=== PATIENT | male | born 1935 | race Caucasian/White ===

== ENCOUNTER 2020-12-26 10:55 | Inpatient (IN) | payer OTHER, BC ==
[2020-12-26 11:22] VITALS: BMI 23.3
[2020-12-26 12:48] LABS: BASO % 0.3 % (0-2.0); EOS % 0.5 % (0-4.5); HEMATOCRIT 31.8 % (35.4-49); HEMOGLOBIN 10.5 GM/dL (11.7-16.9); LYMPH % 5.3 % (8-40); MCH 30.2 pg (25.7-33.7); MEAN CELL VOLUME 91.4 fl (80-96); MEAN PLT VOLUME 8.4 fl (7.5-11.1); MONO % 9.1 % (3.8-10.2); NEUT % 84.8 % (42.8-82.8); PLATELET COUNT 357 K/MM3 (134-434); RBC 3.49 M/mm3 (4.00-5.60); WHITE BLOOD COUNT 11.3 K/mm3 (4.0-10.0)
[2020-12-26 12:55] LABS: INR 1.16 (0.83-1.09)
[2020-12-26 13:21] LABS: CHLORIDE 104 mmol/L (98-107); POTASSIUM 4.4 mmol/L (3.5-5.1); SODIUM 137 mmol/L (136-145)
[2020-12-26 13:25] LABS: ALBUMIN 2.7 g/dl (3.4-5.0); ANION GAP 7 MMOL/L (8-16); BLOOD UREA NITROGEN 10.6 mg/dL (7-18); CALCIUM 8.4 mg/dL (8.5-10.1); CO2 26 mmol/L (21-32); GLUCOSE,RANDOM 101 mg/dL (74-106)
[2020-12-26 13:28] LABS: CREATININE 0.8 mg/dL (0.55-1.3); SGOT/AST 17 U/L (15-37); SGPT/ALT 11 U/L (13-61)
[2020-12-26 13:29] LABS: BILIRUBIN,TOTAL 0.6 mg/dL (0.2-1)
[2020-12-26 13:30] LABS: ALK PHOS 409 U/L (45-117)
[2020-12-26] MEDS: SODIUM CHLORIDE 1,000 ML IV SCH (18:38)
[2020-12-26 21:15] LABS: PH,URINE 5.5 (5.0-8.0); URINE APPEARANCE CLEAR; URINE BILIRUBIN NEGATIVE (NEGATIVE); URINE COLOR YELLOW; URINE GLUCOSE (UA) NEGATIVE (NEGATIVE); URINE KETONE NEGATIVE (NEGATIVE); URINE LEUK ESTERASE NEGATIVE (NEGATIVE); URINE NITRITE NEGATIVE (NEGATIVE); URINE PROTEIN NEGATIVE (NEGATIVE); URINE UROBILINOGEN 0.2 mg/dL (0.2-1.0)
[2020-12-27] MEDS ORDERED: MORPHINE SULFATE 2 MG/ML VIAL ONE (02:24)
[2020-12-27] MEDS ORDERED: ACETAMINOPHEN 325 MG TABLET (FP) PO PRN (02:25)
[2020-12-27] MEDS: MORPHINE SULFATE 2 MG/ML VIAL IVPUSH PRN ×2 (02:29→17:23)
[2020-12-27 08:13] LABS: BASO % 0.3 % (0-2.0); EOS % 0.3 % (0-4.5); HEMATOCRIT 28.9 % (35.4-49); HEMOGLOBIN 9.7 GM/dL (11.7-16.9); LYMPH % 6.5 % (8-40); MCH 30.4 pg (25.7-33.7); MCHC 33.4 g/dl (32.0-35.9); MEAN PLT VOLUME 8.4 fl (7.5-11.1); MONO % 8.2 % (3.8-10.2); NEUT % 84.7 % (42.8-82.8); PLATELET COUNT 349 K/MM3 (134-434); RBC 3.18 M/mm3 (4.00-5.60); RDW 14.9 % (11.9-15.9); WHITE BLOOD COUNT 12.1 K/mm3 (4.0-10.0)
[2020-12-27 08:26] LABS: CHLORIDE 106 mmol/L (98-107); POTASSIUM 4.5 mmol/L (3.5-5.1); SODIUM 140 mmol/L (136-145)
[2020-12-27 08:34] LABS: CREATININE 0.7 mg/dL (0.55-1.3); SGOT/AST 18 U/L (15-37)
[2020-12-27 08:35] LABS: ANION GAP 9 MMOL/L (8-16); BILIRUBIN,TOTAL 0.6 mg/dL (0.2-1); CALCIUM 8.4 mg/dL (8.5-10.1); CO2 24 mmol/L (21-32); GLUCOSE,RANDOM 107 mg/dL (74-106)
[2020-12-27 08:36] LABS: ALBUMIN 2.6 g/dl (3.4-5.0); BLOOD UREA NITROGEN 13.1 mg/dL (7-18); TOT PROT 6.5 g/dl (6.4-8.2)
[2020-12-27 08:38] LABS: PHOSPHOROUS 4.2 mg/dL (2.5-4.9)
[2020-12-27 08:43] LABS: SGPT/ALT 13 U/L (13-61)
[2020-12-27 08:44] LABS: ALK PHOS 373 U/L (45-117)
[2020-12-27] MEDS ORDERED: ENOXAPARIN NA (PORCINE) 40 MG/0.4 ML DISP.SYRIN SQ SCH (10:00)
[2020-12-27] MEDS ORDERED: LOSARTAN POTASSIUM 50 MG TABLET PO SCH (11:30)
[2020-12-27] MEDS ORDERED: LOSARTAN POTASSIUM 50 MG TABLET ONE (11:40)
[2020-12-27] MEDS: SODIUM CHLORIDE 1,000 ML IV SCH (16:52)
[2020-12-27] MEDS ORDERED: ceFAZolin SODIUM 1 GM VIAL ONE (19:22)
[2020-12-27] MEDS ORDERED: EPHEDRINE SULFATE/0.9% NACL/PF 50 MG/10 ML SYRINGE NR ONE (19:22)
[2020-12-27] MEDS ORDERED: LIDOCAINE HCL/PF 2% SDV 5ML VIAL ONE (19:22)
[2020-12-27] MEDS ORDERED: SODIUM CHLORIDE 0.9% P/F 10 ML VIAL IJ ONE (19:22)
[2020-12-27] MEDS ORDERED: MIDAZOLAM HCL 2 MG/2 ML SINGLE DOSE VIAL ONE (19:23)
[2020-12-27] MEDS ORDERED: SUCCINYLCHOLINE CHLORIDE 200 MG/10 ML SYRINGE ONE (19:23)
[2020-12-27] MEDS ORDERED: PROPOFOL 20 ML ONE ×3 (19:23)
[2020-12-27] MEDS ORDERED: ceFAZolin SODIUM 1 GM VIAL IVPB ONE (20:45)
[2020-12-27] MEDS ORDERED: TRANEXAMIC ACID 1000 MG/10 ML VIAL ONE (21:08)
[2020-12-27] MEDS ORDERED: ONDANSETRON 4 MG/2 ML VIAL ONE (21:26)
[2020-12-27] MEDS ORDERED: ATORVASTATIN CA 10 MG TABLET (FP) PO SCH (22:00)
[2020-12-27] MEDS: ACETAMINOPHEN 1000 MG/100 ML VIAL (NON FORMULARY) IVPB SCH (23:00)
[2020-12-27] MEDS ORDERED: ONDANSETRON 4 MG/2 ML VIAL IVPUSH PRN (23:05)
[2020-12-28] MEDS: LACTATED RINGERS SOLUTION 1,000 ML IV SCH ×2 (00:56→22:58)
[2020-12-28] MEDS ORDERED: DEXTROSE 5%-WATER - 50 ML IVPB ONE ×3 (01:24→17:16)
[2020-12-28] MEDS ORDERED: ceFAZolin SODIUM 1 GM VIAL ONE ×3 (01:24→17:15)
[2020-12-28] MEDS: CEFAZOLIN 1 GM in DEXTROSE 5%-WATER - 50 ML IVPB SCH ×3 (01:29→17:27)
[2020-12-28] MEDS: ACETAMINOPHEN 1000 MG/100 ML VIAL (NON FORMULARY) IVPB SCH ×2 (05:29→11:44)
[2020-12-28] MEDS: DOCUSATE SODIUM 100 MG CAPSULE (FP) PO SCH ×3 (06:08→21:46)
[2020-12-28] MEDS ORDERED: ESCITALOPRAM OXALATE 20 MG TABLET PO SCH (10:00)
[2020-12-28] MEDS: CALCIUM 500MG/VIT-D 200 UNITS COMBO TABLET (FP) PO SCH ×2 (10:02→21:46)
[2020-12-28] MEDS: FERROUS SO4 325 MG TABLET (FP) PO SCH ×2 (10:02→21:46)
[2020-12-28] MEDS: LOSARTAN POTASSIUM 25 MG TABLET PO SCH (10:02)
[2020-12-28] MEDS: ESCITALOPRAM OXALATE 20 MG TABLET PO SCH (10:02)
[2020-12-28] MEDS: ENOXAPARIN NA (PORCINE) 40 MG/0.4 ML DISP.SYRIN SQ SCH (10:03)
[2020-12-28 12:46] LABS: HEMATOCRIT 24.9 % (35.4-49); HEMOGLOBIN 8.3 GM/dL (11.7-16.9); MCH 30.6 pg (25.7-33.7); MCHC 33.4 g/dl (32.0-35.9); MEAN CELL VOLUME 91.3 fl (80-96); MEAN PLT VOLUME 8.1 fl (7.5-11.1); PLATELET COUNT 325 K/MM3 (134-434); RBC 2.72 M/mm3 (4.00-5.60); RDW 15.3 % (11.9-15.9); WHITE BLOOD COUNT 11.5 K/mm3 (4.0-10.0)
[2020-12-28] MEDS: traMADol HCL 50 MG TABLET PO PRN ×2 (15:09→21:46)
[2020-12-28] MEDS: ASCORBIC ACID 500 MG TABLET (FP) PO SCH (21:46)
[2020-12-28] MEDS ORDERED: ATORVASTATIN CA 10 MG TABLET (FP) PO SCH (22:00)
[2020-12-29] MEDS: DOCUSATE SODIUM 100 MG CAPSULE (FP) PO SCH ×2 (05:45→13:02)
[2020-12-29] MEDS: traMADol HCL 50 MG TABLET PO PRN ×3 (05:45→17:35)
[2020-12-29 07:29] LABS: HEMATOCRIT 25.2 % (35.4-49); HEMOGLOBIN 8.7 GM/dL (11.7-16.9); MCH 31.3 pg (25.7-33.7); MCHC 34.3 g/dl (32.0-35.9); MEAN CELL VOLUME 91.5 fl (80-96); MEAN PLT VOLUME 7.9 fl (7.5-11.1); PLATELET COUNT 341 K/MM3 (134-434); RBC 2.76 M/mm3 (4.00-5.60); RDW 15.2 % (11.9-15.9); WHITE BLOOD COUNT 11.5 K/mm3 (4.0-10.0)
[2020-12-29] MEDS: ENOXAPARIN NA (PORCINE) 40 MG/0.4 ML DISP.SYRIN SQ SCH (09:15)
[2020-12-29] MEDS: LOSARTAN POTASSIUM 25 MG TABLET PO SCH (09:15)
[2020-12-29] MEDS: ESCITALOPRAM OXALATE 20 MG TABLET PO SCH (09:15)
[2020-12-29] MEDS: ASCORBIC ACID 500 MG TABLET (FP) PO SCH (09:15)
[2020-12-29] MEDS: CALCIUM 500MG/VIT-D 200 UNITS COMBO TABLET (FP) PO SCH (09:15)
[2020-12-29] MEDS: FERROUS SO4 325 MG TABLET (FP) PO SCH (09:15)
[2020-12-29 14:54] VITALS: BP 134/67; PULSE 117; TEMP 99.8
== END 2020-12-29 17:51 | DRG 481 ==
LOC: JER 10:55 → JERBED 16:59 → J4W 12-27 16:08 → OBSVTOIN 12-27 17:58
PROVIDERS: ADMIT Internal Medicine; ATTEND Internal Medicine
PROC: 2W6NX0Z Traction of Right Upper Leg using Traction Apparatus (ICD-10-PCS; 2020-12-27)
PROC: 0QS706Z Reposition Left Upper Femur with Intramedullary Internal Fixation Device, Open Approach (ICD-10-PCS; principal; 2020-12-27 18:00)
DX: S72.142A Displaced intertrochanteric fracture of left femur, initial encounter for closed fracture (principal); C79.51 Secondary malignant neoplasm of bone; C61 Malignant neoplasm of prostate; F03.90 Unspecified dementia, unspecified severity, without behavioral disturbance, psychotic disturbance, mood disturbance, and anxiety; I10 Essential (primary) hypertension; E78.5 Hyperlipidemia, unspecified; F41.9 Anxiety disorder, unspecified; R29.6 Repeated falls; R26.81 Unsteadiness on feet; D72.829 Elevated white blood cell count, unspecified; R74.8 Abnormal levels of other serum enzymes; Z99.3 Dependence on wheelchair; W05.0XXA Fall from non-moving wheelchair, initial encounter; Y92.090 Kitchen in other non-institutional residence as the place of occurrence of the external cause
CPT/HCPCS: 36415; 70450-TC; 71045-TC-FY; 72125-TC; 72170-TC-FY; 73070-TC-RT-FY; 73502-TC-LT-FY; 73502-TC-RT-FY; 73552-TC-LT-FY; 73552-TC-RT-FY; 76000-TC-FY; 80053; 81003; 82550; 83735; 84100; 84484; 85025; 85027; 85610; 86850; 86900; 86901; 87086; 93005; 93010; 93306-TC; 94760; 97162-GP; 99285-25; C9803; G0378; J0131; U0003